=== PATIENT | female | born 1985 | race Caucasian/White ===

== ENCOUNTER 2016-09-19 15:43 | Emergency (ER) | payer OTHER ==
[~2016-09-19] VITALS: Ht 162.6 cm; Wt 52.2 kg
[2016-09-19] MEDS ORDERED: ALPRAZolam 0.5mg tab ORAL ONE (16:00)
[2016-09-19] MEDS ORDERED: Adenosine 6mg/2ml Inj ONE (16:10)
[2016-09-19 16:24] VITALS: BP 122/73
[2016-09-19] MEDS ORDERED: Adenosine 6mg/2ml Inj IVP ONE ×2 (16:30)
[2016-09-19 16:53] LABS: BASOPHILS % (AUTO) 1.5 % (0.0-2.0); EOSINOPHILS % (AUTO) 0.9 % (0.0-3.0); LYMPHOCYTES % (AUTO) 35.4 % (20.0-45.0); MEAN CORPUSCULAR HEMOGLOBIN 31.3 PG (27.0-31.0); MEAN CORPUSCULAR HGB CONC 35.4 G/DL (32.0-36.0); MEAN CORPUSCULAR VOLUME 88 FL (80-99); MEAN PLATELET VOLUME 6.5 FL (6.5-10.1); MONOCYTES % (AUTO) 5.9 % (1.0-10.0); NEUTROPHILS % (AUTO) 56.4 % (45.0-75.0); PLATELET COUNT 310 K/UL (150-450); RED BLOOD COUNT 4.22 M/UL (4.20-5.40); RED CELL DISTRIBUTION WIDTH 12.6 % (11.6-14.8); WHITE BLOOD COUNT 8.9 K/UL (4.8-10.8)
[2016-09-19 16:56] LABS: ANION GAP 17 (5-15); CALCIUM 8.9 mg/dL (8.6-10.2); CARBON DIOXIDE 24 mEQ/L (20-30); CHLORIDE 95 mEQ/L (98-107); CREATININE 0.7 mg/dL (0.5-0.9); GLOMERULAR FILTRATION RATE > 60 mL/min (>60); HEMOLYSIS 4; POTASSIUM 3.3 mEQ/L (3.4-4.9); SODIUM 136 mEQ/L (135-145)
[2016-09-19 17:00] VITALS: BP 103/66
[2016-09-19] MEDS ORDERED: NKM (17:16)
--- NOTE | 2016-09-19 18:02 | Emergency Room Report ---
History of Present Illness General Chief Complaint: General Complaint Source: Patient, EMS Present Illness HPI Patient is a 31-year-old female presented after increased palpitations and anxiety. Patient had sudden onset of symptoms while driving. Patient had previous type similar symptoms. She denies recent alcohol or drug use. The patient states that she had been having some sensation that her heart was beating quickly. She had not been vomiting. She denied diarrhea. She reported feeling somewhat dehydrated. Allergies: Coded Allergies: No Known Allergies (Unverified , 09/19/16) Patient History Past Medical History: see triage record Last Menstrual Period: 08/26 Now: No : 1 Para: 1 Reviewed Nursing Documentation: PMH: Agreed, PSxH: Agreed Nursing Documentation-PMH Past Medical History: No History, Except For Review of Systems All Other Systems: negative except mentioned in HPI Physical Exam Vital Signs Date Time Temp Pulse Resp B/P Pulse Ox O2 Delivery O2 Flow Rate FiO2 09/19/16 15:42 98.4 160 20 116/72 99 Sp02 EP Interpretation: reviewed, normal General Appearance: normal inspection, well appearing, no apparent distress, alert, GCS 15 Head: atraumatic ENT: normal ENT inspection, hearing grossly normal, normal voice Neck: normal inspection, full range of motion, supple, no bony tend Respiratory: normal inspection, lungs clear, normal breath sounds, no respiratory distress, no retraction, no wheezing Cardiovascular #1: no edema, tachycardia Gastrointestinal: normal inspection, normal bowel sounds, non tender, soft, no guarding, no hernia Genitourinary: no CVA tenderness Musculoskeletal: normal inspection, back normal, normal range of motion Neurologic: normal inspection, alert, oriented x3, responsive, museum registrar III-XII nml as tested, motor strength/tone normal, DTRs symmetric, speech normal Psychiatric: normal inspection, judgement/insight normal, mood/affect normal Skin: normal inspection, normal color, no rash Medical Decision Making Diagnostic Impression: Primary Impression: Supraventricular arrhythmia Additional Impressions: Hypokalemia Hyperglycemia Dehydration ER Course Patient presented for anxiety and palpitations. The patient was noted to have initial heart rate greater than 160. 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 The patient noted to have what appear to be a superventricular tachycardia. The EKG interpreted by me showed supraventricular tachycardia with a rate of 145. The patient was given adenosine 6 mg followed by 12 mg. Patient had subsequent improvement in heart rate. Repeat EKG showed sinus tachycardia with a rate of [address] depression. Laboratory testing showed normal white blood count with mild hypokalemia and slightly elevated blood sugar. The patient was given IV magnesium as well as potassium. She was also given IV fluids. The patient gradual improvement in her heart rate. Repeat EKG showed a low QRS voltage with incomplete right bundle branch block with a rate of 91. The patient was discussed with [facility] [id number]. The patient's urine drug screen subsequently return positive for marijuana and methamphetamine. the patient in transfer to [place] for further evaluation. Labs Test 09/19/16 16:15 09/19/16 17:26 White Blood Count 8.9 K/UL (4.8-10.8) Red Blood Count 4.22 M/UL (4.20-5.40) Hemoglobin 13.2 G/DL (12.0-16.0) Hematocrit 37.3 % (37.0-47.0) Mean Corpuscular Volume 88 FL (80-99) Mean Corpuscular Hemoglobin 31.3 PG (27.0-31.0) Mean Corpuscular Hemoglobin Concent 35.4 G/DL (32.0-36.0) Red Cell Distribution Width 12.6 % (11.6-14.8) Platelet Count 310 K/UL (150-450) Mean Platelet Volume 6.5 FL (6.5-10.1) Neutrophils (%) (Auto) 56.4 % (45.0-75.0) Lymphocytes (%) (Auto) 35.4 % (20.0-45.0) Monocytes (%) (Auto) 5.9 % (1.0-10.0) Eosinophils (%) (Auto) 0.9 % (0.0-3.0) Basophils (%) (Auto) 1.5 % (0.0-2.0) Sodium Level 136 mEQ/L (135-145) Potassium Level 3.3 mEQ/L (3.4-4.9) Chloride Level 95 mEQ/L (98-107) Carbon Dioxide Level 24 mEQ/L (20-30) Anion Gap 17 (5-15) Blood Urea Nitrogen 9 mg/dL (7-23) Creatinine 0.7 mg/dL (0.5-0.9) Estimat Glomerular Filtration Rate > 60 mL/min (>60) Glucose Level 216 mg/dL (74-106) Calcium Level 8.9 mg/dL (8.6-10.2) Thyroid Stimulating Hormone (TSH) 1.020 uIU/mL (0.300-4.500) Urine Opiates Screen Negative (NEGATIVE) Urine Barbiturates Screen Negative (NEGATIVE) Phencyclidine (PCP) Screen Negative (NEGATIVE) Urine Amphetamines Screen Positive (NEGATIVE) Urine Benzodiazepines Screen Negative (NEGATIVE) Urine Cocaine Screen Negative (NEGATIVE) Urine Marijuana (THC) Screen Positive (NEGATIVE) Rhythm Strip Diag. Results EP Interpretation: yes Rhythm: NSR, no PVC's, no ectopy Last Vital Signs Date Time Temp Pulse Resp B/P Pulse Ox O2 Delivery O2 Flow Rate FiO2 09/19/16 16:33 132 09/19/16 16:24 98.4 15 122/73 99 Status: improved Disposition: XFER SHT-TRM HOSP Condition: Serious Referrals: [facility] (PCP) Med Samuels September 19, 2016 18:02
[2016-09-19 18:48] VITALS: BP 100/65
[2016-09-19 19:18] VITALS: BP 95/55
[2016-09-19 20:15] VITALS: BP 104/62
[2016-09-19 23:26] LABS: APPEARANCE,URINE VERY CLOUDY; KETONES,URINE 1+ (NEGATIVE); LEUKOCYTE ESTERASE ,URINE 1+ (NEGATIVE); NITRITE,URINE POSITIVE (NEGATIVE); PH,URINE 5 (4.5-8.0); PROTEIN,URINE 1+ (NEGATIVE); UROBILINOGEN,URINE NORMAL MG/DL (0.0-1.0)
[2016-09-19 23:42] LABS: RBC,URINE 0-2 /HPF (0 - 2); WBC,URINE 0-2 /HPF (0 - 2)
[2016-09-19 23:43] LABS: BACTERIA,URINE MANY /HPF
== END 2016-09-19 20:25 | disposition short-term general hospital (02) ==
LOC: EDBD 15:43 → EMR 17:48
DX: I49.8 Other specified cardiac arrhythmias (principal); R00.2 Palpitations; F41.9 Anxiety disorder, unspecified; E87.6 Hypokalemia; E86.0 Dehydration; R73.9 Hyperglycemia, unspecified
CPT/HCPCS: 36415; 80048; 80300; 81003; 81025; 84443; 85025; 87086; 93005; 96374; 96375; 99285; J0153; J8499